=== PATIENT | female | born 1985 | race Hispanic/Latino ===

== ENCOUNTER 2018-05-27 20:11 | Outpatient (AMB) | payer MEDICAID, SELFPAY ==
--- NOTE | 2018-05-27 20:13 | URCARE_ITS ---
Intake Ht./Wt. Decline/Exclusions Patient Declined Height and Weight this visit: No PT Meets exclusion criteria: No Vital Signs 05/27/18 20:19 Height Method Measured Weight Measurement Method Standing Scale BMI 22.3 Temp 98.6 F Temp Source Temporal Artery Scan Pulse 65 Pulse Source Monitor Respiration 20 BP 115/77 Blood Pressure Source Automatic Cuff Blood Pressure Location Right Upper Arm Position Sitting Pulse Oximetry (%) 99 Oxygen Delivery Method Room Air Intake Visit Reasons: UC Visit Triage Triage Allergy / Med Rec Allergies No Known Allergies Allergy (Verified 05/27/18 20:27) Band Placement: Patient Identification NUBIA: [id number] Arrival Mode of Arrival: Private Vehicle Method of Arrival: Ambulatory Accompanied By: Self PCP or OBGYN visit in last 3 months: No Language Preferred Language: [place] Required: No Social History Alcohol / Drugs Hx Alcohol Use: No Hx Substance Use: No Safety Do You Feel Safe at Home: Yes Authorities Contacted: N/A Martines Fall Scale Special Populations Patient Comatose, Paralyzed or Immobile: No Patient Under the Age of 44 Years Old: No Assessment History of falling; immediate or within 3 months: No Secondary diagnosis: No Ambulatory aid: None IV Infusion: No Gait/Transferring: Normal/bedrest/immobile Mental Status: Oriented to own ability Score Score: 0 Risk Level/Action Risk Level: Low Risk Action: Good Basic Nursing Care Fall Star Level 1 Fall Star Level 1: Yes Patient Education Topic Education Topics: Discharge Instructions and Plan of Care Teaching Recipient: Patient Readiness, Motivation to Learn: Active Methods: Verbal instruction and Hand Out Educ Materials Suggested by INFO Button/Rx Monograph Given: No Response: Verbalize Understanding [place] Cook Required: No [facility] Hx Congestive Heart Failure: No Hx Diabetes Mellitus Type 1: No Hx Diabetes Mellitus Type 2: No Hx Renal Disease: No Hx Chronic Obstructive Pulmonary Disease (COPD): No Past Medical History Reviewed and agree with Nursing documentation.: Yes Past Medical History History Provided By: Patient Cardiac Medical History Hx Congestive Heart Failure: No Endocrine Medical History Hx Diabetes Mellitus Type 1: No Hx Diabetes Mellitus Type 2: No Genitourinary Medical History Hx Renal Disease: No Respiratory Medical History Hx COPD: No HPI UC Visit Details: This is a 32-year-old female who presents the urgent care complaining of an ingrown toenail of the right great toe for the last 1-2 months. She states she has been trying to cut it out at home, however now she has redness and swelling to the toe. She denies any fever chills nausea vomiting or diarr hea. No other complaints. Review of Systems (UC) Review of Systems All systems reviewed & no additional complaints except as documented Const Constitutional: Denies fever(s) Skin/Breast Skin/Breast: Reports as per HPI Exam (UC) Limitations: no limitations General Appearance: alert, in no apparent distress, comfortable, cooperative, healthy appearing, well developed and well groomed Head exam: atraumatic, normocephalic and normal inspection Eye exam: Reports normal appearance and Reports EOMI ENT exam: Present normal exam Neck Exam: Present normal inspection Chest/Breast Exam: Present normal inspection SPO2%: 99% SPO2 type: Room Air SPO2% Normal/Abnormal: Normal Respiratory exam: Present normal lung sounds bilaterally, normal respiratory effort, able to speak in complete sentences and clear to ascultation bilaterally Cardiovascular exam: Present regular rate and regular rhythm Extremities exam: normal inspection Right Foot/toe: Top foot image: 1. RIGHT GREAT TOE: Swelling and erythema noted to the lateral aspect of the great toe nail. Scant amount of purulent discharge. Ingrown nail also noted. Back exam: Present normal inspection Neurological Exam: Present alert, awake and oriented X3 Psychiatric exam: Present normal affect and normal mood Skin exam: Present warm, dry, intact and normal color Office Procedures UC Irrigate Wound Wound Left Great Toe: Wound Cleaning Equipment: 4X4 Wound Topical Solution/Irrigant: Wound Cleanser Wound Irrigated Under Pressure: No UC Level of Care Nursing/Assessment/Reassessment Patient Status: Established Patient Nursing Assessment/Reassessment: Triage Asessment, Initial Vital Signs and RN General Assessments Coordination of Care: DC Instructions Simple Miscellaneous Interventions: Wound Cleaning Established Patient Charge Established Patient Point Assignment: 45 Established Patient Point Assignment: EP Level 2 (40-75) Procedures: Pulse Ox reading: Yes Minor Surgical Procedure: Yes SQ Im Injection: Yes Misc Nursing Order Misc Nursing Order:: toe nail removal set up Wound Care Treatment Wound Left Great Toe: Wound Medication: Triple Antibiotic Oint Primary Dressing Type: Gauze Pad Comments:: WRAPPED WITH [place]BAN UC Xylocaine 10 mg/ml (1%) 200 mg - 20 ml injection soln (lidocaine HCL) Medication Given Medication Given: Yes Route: PO Office Meds Xylocaine Performing Provider: Mahendra Baez PA-C Administered by: Diallo Lanier RN on 05/27/18 20:28 Dose Route Admin Location Lot Number Expiration Date NDC Multiple Pressure Riveter Operator 200 mg Infiltration rt great toe UC Procedures Ingrown Toe Nail Foot location (right): great toe: Lateral Duration: 1-3 months Skin Prep: betadine Analgesia: digital block Local anesthetic: lidocaine 1% Amount of anesthetic used (mL): 5 Patient Tolerated Procedure:: well and no complications Additional Comments:: INGROWN TOE NAIL REMOVAL: Risks and benefits were explained and verbal consent was obtained for the procedure. The skin was prepped with betadine. A suture pack was opened and at bedside. Digital block was performed. A wedge resection of the ingrown portion of the nail was done and the nail was removed. The area was then cleaned and dressed by the nursing staff. Patient tolerated well. No complications. Assessment and Plan Assessment & Plan (1) Ingrowing toenail of right foot: Plan Details Other Medications: New: acetaminophen ER swallow whole; do not crush, chew, break, dissolve, cut, or open 650 mg PO Q8H PRN 30 tabs 0RF fever or pain cephalexin (Keflex) 500 mg PO Q6H 10 days 40 caps 0RF ibuprofen prn pain / fever 600 mg PO Q8H PRN 30 tabs 0RF fever or pain Discontinued: Xylocaine (lidocaine HCl) Discontinued Reason: Office Medication has been Documented as given 200 mg (20 mL) Infiltration ONCE 20 mL 0RF NS Other Orders: Orders: Xylocaine 10 mg/ml (1%) 200 mg - 20 ml injection soln (lidocaine HCL) Today [facility] Nursing Order Today Irrigate Wound Today Wound Care Treatment Today Additional Comments: Follow up with your doctor in 3-5 days for recheck and reevaluation. Take any / all medication(s) as directed. If worse, not improving, or any concerns go immediately to the EMERGENCY ROOM. DISCHARGE NOTE: I emphasized the need for follow-up with their primary care provider. Failure to follow-up could result in a poor outcome or failure of treatment altogether. If the patient is unable to follow-up with their primary care provider, they are to go to the Emergency Department if their symptoms persist or worsen. I have reviewed the discharge treatment plan and follow-up instructions with the patient and/or patient representatives, addressed any concerns, and answered any and all questions. They have verbalized understanding of the discharge treatment plan. Follow Up: 3 Days Instructions: ED Ingrown Toenail Excised Additional Information PA/MARKET NEWS REPORTER Supervising Physician: Robert Faust DC Evaluation Discharge Information Seen, Treated and Released by Provider: No Left Prior to Receiving Discharge Instructions: No Transfer to Outside Facility: No Vital Signs Vitals Signs N/A: Yes Pain Pain Medication / Other Intervention Provided: No Medication Medication Given this Visit: No Discharge Information Condition on Discharge: Stable Mode of Discharge: Ambulatory Discharge Transportation: Private Vehicle Instructions [place] Cook Required: No Discharge Instructions Given To: Patient Was Follow up Care Ordered: Yes Verbalizes Understanding of Discharge Instructions: Yes [facility] information card provided?: Yes Patient plan follow up w/PCP for [facility]: No
[2018-05-27 20:19] VITALS: BP 115/77; PULSE 65; RESP 20; TEMP 37; O2SAT 99; BMI 22.3
== END 2018-05-27 20:50 | disposition home or self-care (01) ==
PROVIDERS: Visit Provider Physician Assistant